=== PATIENT | female | born 1945 | race Caucasian/White ===

== ENCOUNTER 2017-11-17 14:40 | Emergency (ER) | payer BC ==
--- NOTE | 2017-11-17 15:30 | ED Physician Chart ---
ED Chief Complaint/HPI - Patient Information Date Seen:: 11/17/17 Time Seen:: 15:15 Chief Complaint:: sore throat History of Present Illness:: Patient's had a sore throat and difficulty swallowing since yesterday. She's had abdominal pain and constipation for 1 month also. Allergies:: Allergies Allergy/AdvReac Type Severity Reaction Status Date / Time No Known Allergies Allergy Verified 11/17/17 15:15 Vitals:: Vital Signs - 8 hr 11/17/17 15:07 Temp 100.3 F HR 102 RR 16 BP 128/79 O2 Sat % 98 Historian:: Patient Review:: Nurse's Note Reviewed ED Review of Systems - Review of Systems General/Constitutional: No weight loss, No weakness, No diaphoresis Skin: No skin lesions Head: No headache Eyes: No loss of vision ENT: No earache, Sore throat Neck: Neck pain Cardio Vascular: No chest pain, No palpitations Pulmonary: No SOB GI: No nausea, No vomiting, No diarrhea, Constipation G/U: No dysuria, No frequency, No hematuria Musculoskeletal: No bone or joint pain Endocrine: No polyuria Psychiatric: Depression, Anxiety Hematopoietic: No bruising Allergic/Immuno: No urticaria Neurological: No syncope ED Past Medical History - Past Medical History Past Medical History: HTN, Other (depression; anxiety) Family History: None Social History: Non Smoker, No Alcohol Surgical History: Hysterectomy, other (thyroid) Medication: Reviewed ED Physical Exam - Physical Examination General/Constitutional: Well-developed, well-nourished, Alert, No distress Head: Atraumatic Eyes: Lids, conjuctiva normal, PERRL Skin: Nl inspection, No rash ENMT: External ears, nose nl, Nasal exam nl Other ENMT comments:: Throat only partially visualized as patient pulls away when tongue depressor applied; throat appears clear Neck: No nuchal rigidity Other Neck comments:: Point tenderness left anterior neck Respiratory: Nl effort/Exclusion, Clear to Auscultation Cardio Vascular: RRR, No murmur, gallop, rubs GI: No organomegaly, No hernia, Normal BS's, Nondistended Other GI comments:: Diffuse tenderness without guarding : No CVA tenderness Extremities: Normal digits & nails Neuro/Psych: No focal deficits ( ) ED Labs/Radiology/EKG Results - Lab Results Results: Laboratory Results - last 24 hr 11/17/17 11/17/17 11/17/17 15:37 15:37 15:37 WBC 12.6 H RBC 4.36 Hgb 12.7 Hct 38.3 L MCV 87.7 MCH 29.0 MCHC Differential 33.1 RDW 13.7 Plt Count 284 MPV 7.8 Band Neutrophils % 2 Neutrophils (Manual) 84 H Lymphocytes 9 L Monocytes 5 Platelet Estimate ADEQUATE Sodium 138 Potassium 3.5 Chloride 104 Carbon Dioxide 23.6 Anion Gap 13.9 BUN 20 Creatinine 0.7 Est GFR ( Amer) TNP Est GFR (Non-Af Amer) TNP BUN/Creatinine Ratio 28.6 Glucose 116 H Whole Bld Lactic Acid 1.66 Calcium 9.9 Lipase 29 Laboratory Results - last 24 hr 11/17/17 11/17/17 11/17/17 15:37 15:37 15:37 WBC 12.6 H RBC 4.36 Hgb 12.7 Hct 38.3 L MCV 87.7 MCH 29.0 MCHC Differential 33.1 RDW 13.7 Plt Count 284 MPV 7.8 Band Neutrophils % 2 Neutrophils (Manual) 84 H Lymphocytes 9 L Monocytes 5 Platelet Estimate ADEQUATE Sodium 138 Potassium 3.5 Chloride 104 Carbon Dioxide 23.6 Anion Gap 13.9 BUN 20 Creatinine 0.7 Est GFR ( Amer) TNP Est GFR (Non-Af Amer) TNP BUN/Creatinine Ratio 28.6 Glucose 116 H Whole Bld Lactic Acid 1.66 Calcium 9.9 Lipase 29 Urine Source Urine Color Urine Clarity Urine pH Ur Specific Bimble Urine Protein Urine Glucose (UA) Urine Ketones Urine Blood Urine Nitrate Urine Bilirubin Urine Urobilinogen Ur Leukocyte Esterase Urine RBC Urine WBC Ur Epithelial Cells Urine Bacteria 11/17/17 16:30 WBC RBC Hgb Hct MCV MCH MCHC Differential RDW Plt Count MPV Band Neutrophils % Neutrophils (Manual) Lymphocytes Monocytes Platelet Estimate Sodium Potassium Chloride Carbon Dioxide Anion Gap BUN Creatinine Est GFR ( Amer) Est GFR (Non-Af Amer) BUN/Creatinine Ratio Glucose Whole Bld Lactic Acid Calcium Lipase Urine Source RANDOM Urine Color YELLOW Urine Clarity CLEAR Urine pH 6.0 Ur Specific Bimble 1.025 Urine Protein TRACE Urine Glucose (UA) NEGATIVE Urine Ketones NEGATIVE Urine Blood SMALL H Urine Nitrate NEGATIVE Urine Bilirubin NEGATIVE Urine Urobilinogen 0.2 Ur Leukocyte Esterase NEGATIVE Urine RBC 2-5 Urine WBC 0-2 Ur Epithelial Cells FEW Urine Bacteria FEW ED Assessment - Assessment General Assessment: At about [address] Martinez who did not think that the patient needed admission. He suggested giving IV Rocephin and a prescription for Levaquin and telling the patient to return if worse. Patient was noted to have easy unlabored respirations but still complaining of sore throat ED Septic Shock - . Is Septic Shock (SBP<90, OR Lactate>4 mmol\L) present?: No - <6hrs of presentation: Vital Signs: Vital Signs - 8 hr 11/17/17 15:07 Temp 100.3 F HR 102 RR 16 BP 128/79 O2 Sat % 98 ED Reassessment (Disposition) - Reassessment Reassessment Condition:: Unchanged - Diagnosis Diagnosis:: Pharyngitis; acute febrile illness - Aftercare/Follow up Instructions Aftercare/Follow-Up Instructions:: Refer to Discharge Instructions Medication Prescribed:: Prescription for Levaquin 500 milligrams daily for 1 week given - Patient Disposition Discharge/Transfer:: Home Condition at Disposition:: Stable, Unchanged
[2017-11-17 15:51] LABS: HEMATOCRIT 38.3 % (41.0-60); HEMOGLOBIN 12.7 gm/dL (12-16); MEAN CELL VOLUME 87.7 fl (81-100); MEAN CORPUSCULAR HGB CONC 33.1 pg (28.0-36.0); MEAN PLATELET VOLUME 7.8 fl; PLATELET COUNT 284 Th/cmm (150-400); RED BLOOD COUNT 4.36 Mil/cmm (3.80-5.20); RED CELL DISTRIBUTION WIDTH 13.7 % (11.5-20.0)
[2017-11-17 15:57] LABS: MANUAL DIFF REQUIRED? YES; WHITE BLOOD COUNT 12.6 Th/cmm (4.8-10.8)
[2017-11-17 16:02] LABS: ANION GAP 13.9 (7.0-16.0); BUN - UREA NITROGEN 20 mg/dL (7-25); CALCIUM SERUM 9.9 mg/dL (8.6-10.3); CARBON DIOXIDE 23.6 mEq/L (21.0-31.0); CHLORIDE 104 mEq/L (98-107); CREATININE - SERUM 0.7 mg/dL (0.6-1.2); GLUCOSE 116 mg/dL (70-105); LIPASE 29 U/L (11-82); POTASSIUM SERUM 3.5 mEq/L (3.5-5.1); SODIUM SERUM 138 mEq/L (136-145)
[2017-11-17 16:24] LABS: BAND NEUTROPHILE 2 % (0-10); LYMPHOCYTE 9 % (20-50); MONOCYTE 5 % (2-10); NEUTROPHILS 84 % (40-80); PLATELET ESTIMATE ADEQUATE (NORMAL)
[2017-11-17 16:35] LABS: URINE MICROSCOPIC INDICATED? YES; URINE SOURCE RANDOM
[2017-11-17 16:50] LABS: URINE BILIRUBIN NEGATIVE (NEGATIVE); URINE BLOOD SMALL (NEGATIVE); URINE GLUCOSE (UA) NEGATIVE (NEGATIVE); URINE KETONE NEGATIVE (NEGATIVE); URINE LEUKOCYTE ESTERASE NEGATIVE (NEGATIVE); URINE NITRATE NEGATIVE (NEGATIVE); URINE PROTEIN TRACE mg/dL (NEGATIVE); URINE UROBILINOGEN 0.2 E.U./dL (0.2 - 1.0)
[2017-11-17 16:58] LABS: URINE CLARITY CLEAR (CLEAR); URINE COLOR YELLOW
[2017-11-17 16:59] LABS: URINE BACTERIA FEW /hpf (NONE SEEN); URINE EPITHELIAL CELLS FEW /lpf (FEW); URINE WBC 0-2 /hpf (0-5)
[2017-11-17 19:17] LABS: INF A SCREEN NEG FOR INF A; INF B SCREEN NEG FOR INF B
[2017-11-17] MEDS ORDERED: cefTRIAXone 1 GM in Sodium Chloride 0.9% 50 ML IV ONE (21:40)
--- NOTE | 2017-11-18 08:56 | Diagnostic Imaging Report ---
CHEST X-RAY: AP view INDICATION: Pneumonia COMPARISON: None FINDINGS: Chronic lung changes are noted. No focal consolidation or effusions. The patient is rotated. The heart is normal in size. Degenerative changes of the spine are noted. External material over the left upper quadrant is noted. IMPRESSION: Chronic lung changes with suboptimal lung volume. No focal consolidation identified.
--- NOTE | 2017-11-18 08:58 | Diagnostic Imaging Report ---
KUB single view HISTORY: Constipation. COMPARISON: None FINDINGS: Generalized distended loops of bowel are noted with moderate amount of stool noted. Degenerative changes of spine are noted with scoliosis. External material is seen overlying the left lower quadrant. IMPRESSION: Probable ileus with moderate amount of stool noted. Please correlate clinically.
--- NOTE | 2017-11-18 08:58 | Diagnostic Imaging Report ---
Neck 2 views Indication: Sore throat Comparison: none Findings: No prevertebral soft tissue swelling. The airway is patent. The Epiglottis is unremarkable. Cricoid and thyroid cartilage calcifications are noted. Degenerative changes of the spine are noted. Impression: No prevertebral soft tissue swelling. Patent airway. Please correlate clinically.
== END 2017-11-18 09:40 | disposition home or self-care (01) ==
LOC: ER 14:40
DX: J02.9 Acute pharyngitis, unspecified (principal); I10 Essential (primary) hypertension; R50.9 Fever, unspecified
CPT/HCPCS: 99285; 96365; 70360; 71045; 74018; 36415; 83605; 87804 ×2; 85007; 85027; 85025; 81001; 83690; 80048; J0696; 74000-TC; J7030; Z7610